=== PATIENT | female | born 1975 | race Caucasian/White ===

== ENCOUNTER 2016-08-16 15:07 | Emergency (ER) | payer OTHER ==
[2016-08-16] MEDS ORDERED: 0.9 % SODIUM CHLORIDE 1,000 ML BAG IV ONE (15:29)
[2016-08-16] MEDS ORDERED: ONDANSETRON HCL IV 4 MG/2 ML VIAL IV ONE (15:29)
--- NOTE | 2016-08-16 15:34 | Emergency Department Record ---
History of Present Illness - General Chief complaint: Nausea, Vomiting, Diarrhea Stated complaint: VOMITING X 2 DAYS Time Seen by Provider: 08/16/16 15:29 Source: Patient, Family Mode of Arrival: Ambulatory Limitations: No limitations - History of Present Illness Initial comments: 41 yo female presents with nausea, vomiting, and diarrhea starting yesterday. She states she has kept very little down since it started. No blood in the vomit or diarrhea. No fever. She has had a cough with clear sputum for about 2 weeks. She saw her PCP and started antibiotics on but she does not think she kept them down Wednesday. She had GB surgery one month ago and did very well. She had returned to normal appetite and stools. MD complaint: Diarrhea, Nausea, Vomiting, Other (cough) Onset/Timin -: Days(s) Description of Vomiting: Bilious Description of Diarrhea: Water Associated Abdominal Pain: Yes Location: Diffuse Severity: Moderate Severity scale (1-10): 7 Quality: Cramping, Other Consistency: Constant Improves with: None Worsens with: Vomiting, Other Associated Symptoms: Cough, Nausea/vomiting - Related Data Home Medications Medication Instructions Recorded Confirmed Last Taken Promethazine HCl/Codeine 5 ml PO Q4H PRN 08/16/16 08/16/16 Unknown [Phenergan W/Codeine] Previous Rx's Medication Instructions Recorded Albuterol Sulfate [Proair Hfa] 1 - 2 puff IH .EVERY 4-6 HOURS PRN 05/20/15 #1 inhaler Ondansetron [Zofran Odt] 4 mg PO Q8H #15 tab.rapdis 08/16/16 Allergies Allergy/AdvReac Type Severity Reaction Status Date / Time acetaminophen [From VICODIN] Allergy Unknown HIVES Verified 05/20/15 18:38 hydrocodone bitartrate Allergy Unknown HIVES Verified 05/20/15 18:38 [From VICODIN] morphine [MORPHINE] Allergy Unknown HIVES Verified 05/20/15 18:38 prochlorperazine edisylate Allergy Unknown HYPERSENSIT Verified 05/20/15 18:38 [From COMPAZINE] IVITY prochlorperazine maleate Allergy Unknown HYPERSENSIT Verified 05/20/15 18:38 [From COMPAZINE] IVITY Travel Screening - Travel/Exposure Within Last 30 Days Have you traveled within the last 30 days?: No Review of Systems Constitutional: Reports: Malaise, Weakness. Denies: Chills, Fever, Night sweats Eyes: Denies: Eye discharge, Eye pain, Photophobia ENT: Reports: Congestion, Throat pain Respiratory: Reports: Cough, Wheezes (Hx of asthma). Denies: Hemoptysis, Stridor Cardiovascular: Denies: Chest pain, Palpitations, Syncope Endocrine: Reports: Fatigue. Denies: Polydipsia, Polyuria Gastrointestinal: Reports: Abdominal pain (cramps at times), Diarrhea, Nausea, Vomiting Genitourinary: Denies: Dysuria, Urgency Musculoskeletal: Denies: Arthralgia, Back pain, Myalgia, Neck pain Skin: Denies: Bruising, Change in color Neurological: Denies: Confusion, Headache Psychiatric: Denies: Anxiety Hematological/Lymphatic: Denies: Blood Clots, Easy bleeding, Easy bruising Past Medical History - SOCIAL HISTORY Smoking Status: Former smoker Alcohol Use: None Drug Use: None - RESPIRATORY Hx Respiratory Disorders: Yes Hx Asthma: Yes (seasonal) Comment:: neb machine at home - CARDIOVASCULAR Hx Cardio Disorders: No - NEURO Hx Neuro Disorders: No - GI Hx GI Disorders: Yes Hx Abdominal Pain: Yes Hx Reflux: Yes - Hx Genitourinary Disorders: No - ENDOCRINE Hx Diabetes: No Hx Thyroid Disease: No - MUSCULOSKELETAL Hx Musculoskeletal Disorders: No - PSYCH Hx Psych Problems: No - HEMATOLOGY/ONCOLOGY Hx Hematology/Oncology Disorders: No Family Medical History Any Significant Family History?: Yes Hx Dementia: Grandparents Physical Exam - General General Appearance: Alert, Oriented x3, Cooperative, No acute distress Limitations: No limitations - Head Head exam: Atraumatic, Normal inspection - Eye Eye exam: Normal appearance, PERRL. negative: Conjunctival injection, Periorbital swelling, Scleral icterus - ENT ENT exam: Normal exam, Mucous membranes moist, Normal external ear exam, Normal orophraynx, TM's normal bilaterally Ear exam: Normal external inspection. negative: External canal tenderness Nasal Exam: Normal inspection. negative: Discharge, Sinus tenderness Mouth exam: Normal external inspection, Tongue normal Teeth exam: Normal inspection. negative: Dental caries Throat exam: Normal inspection. negative: Tonsillar erythema, Tonsillar exudate - Neck Neck exam: Normal inspection, Full ROM. negative: Tenderness - Respiratory Respiratory exam: Normal lung sounds bilaterally. negative: Accessory muscle use, Decreased breath sounds, Prolonged expiratory, Respiratory distress, Rhonchi, Stridor, Wheezes - Cardiovascular Cardiovascular Exam: Normal rhythm, Normal heart sounds, Tachycardia. negative : Regular rate - GI/Abdominal GI/Abdominal exam: Soft. negative: Distended, Guarding, Rebound, Rigid, Tenderness - Rectal Rectal exam: Deferred - exam: Deferred - Extremities Extremities exam: Normal inspection, Full ROM, Normal capillary refill. negative: Pedal edema, Tenderness - Back Back exam: Reports: Normal inspection, Full ROM. Denies: CVA tenderness (R), CVA tenderness (L), Muscle spasm, Paraspinal tenderness, Rash noted, Tenderness , Vertebral tenderness - Neurological Neurological exam: Alert, Normal gait, Oriented X3 - Psychiatric Psychiatric exam: Normal affect, Normal mood - Skin Skin exam: Dry, Intact, Normal color, Warm Course Vital Signs 08/16/16 15:18 Temperature 99.7 F H Pulse Rate 130 H Respiratory 24 Rate Blood Pressure 129/81 Pulse Ox 96 - Reevaluation(s) Reevaluation #1: The labs were reviewed No acute changes in the CBC or CMP except mild decrease in K at 3.2 08/16/16 17:43 Reevaluation #2: On recheck she was tolerating PO but some nausea is returning No vomiting or diarrhea to this point. 08/16/16 17:44 Reevaluation #3: The patient is improved with the Phenergan We discussed DC home and a liquid diet the next 1-2 days She is to return tomorrow for a recheck with me if any vomiting, pain or return of diarrhea so a sample can be sent 08/16/16 18:33 Medical Decision Making - Lab Data Result diagrams: 08/16/16 15:56 08/16/16 15:56 Disposition Disposition: Discharge Clinical Impression: Vomiting and diarrhea Disposition: Home, Self-Care Condition: (1) Good Instructions: Acute Nausea and Vomiting (ED), Acute Diarrhea (ED) Additional Instructions: Try to stay well hydrated and eat mostly soft or liquids the next 24 hours Return immediately if fever, uncontrolled nausea or vomiting or any return of diarrhea so a sample can be sent Return for a recheck tomorrow if you feel like you are becoming dehydrated Prescriptions: Ondansetron [Zofran Odt] 4 mg PO Q8H #15 tab.rapdis Forms: Patient Portal Access Time of Disposition: 18:36
[2016-08-16 16:43] LABS: BASO % 0.2 % (0-6); EOS % 1.6 % (0-6); GRAN % 77.3 % (47-80); HEMATOCRIT 42.3 % (35.0-47.0); LYMPH % 15.1 % (16-45); MEAN CELL VOLUME 81.8 fl (81-97); MEAN CORPUSCULAR HGB CONC 35.5 g/dl (32-36); MEAN PLATELET VOLUME 10.1 fl (7.4-10.4); MONO % 5.8 % (0-9); PLATELET COUNT 270 K/uL (130-400); RED BLOOD COUNT 5.17 M/uL (3.80-5.40); RED CELL DISTRIBUTION WIDTH 13.1 % (11.5-14.5); WHITE BLOOD COUNT W/O DIFF 10.7 K/uL (4.2-12.2)
[2016-08-16 16:52] LABS: ALB/GLOB RATIO 1.6 (1.1-1.8); ALBUMIN 4.4 gm/dL (3.5-5.0); ALKALINE PHOSPHATASE 74 U/L (38-126); ALT/SGPT 49 U/L (9-52); ANION GAP 11.1 (7-16); AST/SGOT 18 U/L (14-36); BILIRUBIN,TOTAL 0.76 mg/dL (0.2-1.3); BLOOD UREA NITROGEN 10 mg/dL (7-17); CARBON DIOXIDE 23.9 mmol/L (22-30); CREATININE 0.7 mg/dL (0.52-1.04); EST GLOMERULAR FILTRATION RATE > 60 ml/min; GLUCOSE,RANDOM 87 mg/dL (70-110); LIPASE 91 U/L (23-300); TOTAL PROTEIN 7.2 gm/dL (6.3-8.2)
[2016-08-16] MEDS ORDERED: PROMETHAZINE HCL 25 MG/ML VIAL IVP ONE (17:49)
[2016-08-16] MEDS ORDERED: DIPHENHYDRAMINE HCL IV 50 MG/ML VIAL IVP ONE (17:50)
[2016-08-16] MEDS ORDERED: ONDANSETRON 4 MG ODT TABLET SL ONE (18:32)
--- NOTE | 2016-08-20 12:34 | RADIOLOGY REPORT ---
EXAM: CHEST, TWO VIEWS HISTORY: COUGH FOR THE PAST TWO WEEKS. VOMITING AND DIARRHEA SINCE LAST NIGHT. TECHNIQUE: PA and lateral upright views of the chest were obtained. Comparison: 05/20/11. FINDINGS: The heart, mediastinum, and pulmonary vasculature are normal. Stable calcified granulomas are present within the left mid lung. There are no acute infiltrates or effusions. There is no pneumothorax. The bones appear intact. The visualized portions of the upper abdomen are unremarkable. IMPRESSION: STABLE CHEST WITH NO ACUTE PROCESS IDENTIFIED. JOB NUMBER: [id number] [facility]
== END 2016-08-16 19:25 | disposition home or self-care (01) ==
LOC: ER 15:07
DX: R11.2 Nausea with vomiting, unspecified (principal); R19.7 Diarrhea, unspecified; R05 Cough
CPT/HCPCS: 99284 ×2; 96374; 96375; 96361; 83690; 85025; 80053; 71020; J2405; J1200; J2550; J7030

== ENCOUNTER 2017-07-05 12:48 | Emergency (ER) | payer OTHER ==
[2017-07-05] MEDS ORDERED: KETOROLAC 30 MG/ML VIAL IM ONE (13:21)
[2017-07-05] MEDS ORDERED: AMOXICILLIN/POTASSIUM CLAV 875MG/125MG TABLET PO ONE (13:21)
--- NOTE | 2017-07-05 13:26 | Emergency Department Record ---
History of Present Illness - General Chief complaint: Dental Stated complaint: TOOTH PAIN,DIZZINESS,HEADACHE Time Seen by Provider: 07/05/17 13:15 Source: Patient Mode of Arrival: Ambulatory Limitations: No limitations - History of Present Illness Initial comments: The patient is here due to having L upper tooth pain at the site a a root canal from 5 days ago. The pain has never gone away and now is worsening. She is having worsening pain in the root canal tooth which is # 9 and now it is causing a frontal AVALOS and dizziness. The patient has had this exact same thing happen 3 other times with other dental procedures. She denies any fever, swelling, visual changes, vomiting, neck pain or balance issues. MD complaint: Tooth pain Onset/Timin -: Days(s) - Related Data Home Medications Medication Instructions Recorded Confirmed Last Taken Amoxicillin 500 mg PO TID 07/05/17 07/05/17 07/05/17 Previous Rx's Medication Instructions Recorded Albuterol Sulfate [Proair Hfa] 1 - 2 puff IH .EVERY 4-6 HOURS PRN 05/20/15 #1 inhaler Amoxicillin/Potassium Clav 1 tab PO BID #14 tablet 07/05/17 [Augmentin 875Mg/125Mg] Ketorolac Tromethamine 10 mg PO TID #20 tablet 07/05/17 Allergies Allergy/AdvReac Type Severity Reaction Status Date / Time acetaminophen [From VICODIN] Allergy Unknown HIVES Verified 07/05/17 13:05 hydrocodone bitartrate Allergy Unknown HIVES Verified 07/05/17 13:05 [From VICODIN] morphine [MORPHINE] Allergy Unknown HIVES Verified 07/05/17 13:05 prochlorperazine edisylate Allergy Unknown HYPERSENSIT Verified 07/05/17 13:05 [From COMPAZINE] IVITY prochlorperazine maleate Allergy Unknown HYPERSENSIT Verified 07/05/17 13:05 [From COMPAZINE] IVITY Travel Screening - Travel/Exposure Within Last 30 Days Have you traveled within the last 30 days?: No - Travel/Exposure Within Last Year Have you traveled outside the [place] in the last year?: No - Additonal Travel Details Have you been exposed to anyone with a communicable illness?: No - Travel Symptoms Symptom Screening: None Review of Systems Constitutional: Denies: Chills, Fever Eyes: Denies: Eye discharge ENT: Denies: Congestion Respiratory: Denies: Cough, Dyspnea Past Medical History - SOCIAL HISTORY Smoking Status: Former smoker Alcohol Use: None Drug Use: None - RESPIRATORY Hx Respiratory Disorders: Yes Hx Asthma: Yes (seasonal) Comment:: neb machine at home - CARDIOVASCULAR Hx Cardio Disorders: No - NEURO Hx Neuro Disorders: No - GI Hx GI Disorders: Yes Hx Abdominal Pain: Yes Hx Reflux: Yes - Hx Genitourinary Disorders: No - ENDOCRINE Hx Diabetes: No Hx Thyroid Disease: No - MUSCULOSKELETAL Hx Musculoskeletal Disorders: No - PSYCH Hx Psych Problems: No - HEMATOLOGY/ONCOLOGY Hx Hematology/Oncology Disorders: No Family Medical History Any Significant Family History?: No Hx Dementia: Grandparents Physical Exam - General General Appearance: Alert, Oriented x3, Cooperative, No acute distress - Head Head exam: Atraumatic, Normocephalic, Normal inspection - Eye Eye exam: Normal appearance, PERRL, EOMI - ENT Teeth exam: Normal inspection, Dental tenderness # (9. There is no swelling or abcess identified.), Other - Neck Neck exam: Normal inspection, Full ROM. negative: Lymphadenopathy, Meningismus (The neck is very supple. There is a neg Kernigs and Brudsinski's reflexes.), Tenderness - Respiratory Respiratory exam: Normal lung sounds bilaterally. negative: Respiratory distress - Cardiovascular Cardiovascular Exam: Regular rate, Normal rhythm, Normal heart sounds - GI/Abdominal GI/Abdominal exam: Soft, Normal bowel sounds. negative: Tenderness - Extremities Extremities exam: Normal inspection, Full ROM, Normal capillary refill. negative: Tenderness - Neurological Neurological exam: Alert, Normal gait, Oriented X3, Other (Neg Drift and Rhomberg exams.). negative: Abnormal gait, Motor sensory deficit Course Vital Signs 07/05/17 12:58 Temperature 98.7 F Pulse Rate 97 H Respiratory 16 Rate Blood Pressure 126/73 Pulse Ox 98 - Reevaluation(s) Reevaluation #1: The patient is doing much better at this time. She is up walking with no difficulty and has no nausea. She feels ready for home and has an appointment with her dentist tomorrow. 07/05/17 14:17 Medical Decision Making - Lab Data Result diagrams: 07/05/17 13:40 07/05/17 13:40 Disposition Disposition: Discharge Clinical Impression: Pain, dental Disposition: Home, Self-Care Condition: (2) Stable Instructions: Toothache (ED) Additional Instructions: Please stop the Amox. and take the Augmentin and Toradol as directed. Please see your Dentist tomorrow as planned. Return to the ER for any worsening symptoms. Prescriptions: Amoxicillin/Potassium Clav [Augmentin 875Mg/125Mg] 1 tab PO BID #14 tablet Ketorolac Tromethamine 10 mg PO TID #20 tablet Forms: Patient Portal Access Time of Disposition: 14:20 Quality - Quality Measures Quality Measures: N/A - Blood Pressure Screening View Details: Yes Does Patient Have Any of the Following: No Blood Pressure Classification: Pre-Hypertensive BP Reading Systolic Measurement: 141 Diastolic Measurement: 82 Screening for High Blood Pressure: < Pre-Hypertensive BP, F/U Documented > [ G8950] Pre-Hypertensive Follow-up Interventions: Referral to alternative/primary care provider.
[2017-07-05 13:58] LABS: BASO % 0.2 % (0-6); EOS % 1.6 % (0-6); HEMATOCRIT 39.5 % (35.0-47.0); HEMOGLOBIN 13.5 gm/dl (11.6-16.0); MEAN CELL VOLUME 84.4 fl (81-97); MEAN CORPUSCULAR HEMOGLOBIN 28.8 pg (27-33); MEAN CORPUSCULAR HGB CONC 34.2 g/dl (32-36); MEAN PLATELET VOLUME 10.3 fl (7.4-10.4); MONO % 6.2 % (0-9); PLATELET COUNT 276 K/uL (130-400); RED BLOOD COUNT 4.68 M/uL (3.80-5.40); RED CELL DISTRIBUTION WIDTH 12.8 % (11.5-14.5); WHITE BLOOD COUNT W/O DIFF 5.2 K/uL (4.2-12.2)
[2017-07-05 14:03] LABS: BLOOD UREA NITROGEN 7 mg/dL (6-20); CREATININE 0.6 mg/dL (0.5-0.9); EST GLOMERULAR FILTRATION RATE > 60 mL/min
[2017-07-05 14:06] LABS: GLUCOSE,RANDOM 100 mg/dL (74-109)
[2017-07-05 14:09] LABS: C-REACTIVE PROTEIN 0.42 mg/dL (<0.5)
== END 2017-07-05 14:32 | disposition home or self-care (01) ==
LOC: ER 12:48
DX: G89.18 Other acute postprocedural pain (principal); K08.89 Other specified disorders of teeth and supporting structures; R42 Dizziness and giddiness; R51 Headache; Z98.818 Other dental procedure status
CPT/HCPCS: 99283; 96372; 99284; 85025; 86140; 80048; J1885

== ENCOUNTER 2017-07-05 20:11 | Emergency (ER) | payer OTHER ==
[2017-07-05] MEDS ORDERED: ONDANSETRON HCL IV 4 MG/2 ML VIAL IVP ONE (20:35)
[2017-07-05] MEDS ORDERED: HYOSCYAMINE SULFATE ODT 0.125 MG TAB.SUBL SL ONE ×2 (20:35→22:49)
--- NOTE | 2017-07-05 20:40 | Emergency Department Record ---
History of Present Illness - General Chief complaint: Nausea, Vomiting, Diarrhea Stated complaint: VOMITTING,DIARRHEA,CHILLS Time Seen by Provider: 07/05/17 20:27 Source: Patient Mode of Arrival: Ambulatory Limitations: No limitations - History of Present Illness Initial comments: 41 yo female returns to ED for evaluation of nausea, vomiting, and loose stools that began 4.5 hours ago. Patient was seen earlier this afternoon for dental pain following a root canal 5 days ago, was started on Augmentin and felt better following Toradol administration. Patient denies fevers, chills, or other recent illness, denies health problems at her baseline. MD complaint: Diarrhea, Nausea, Vomiting Onset/Timin -: Days(s) Description of Vomiting: Bilious Associated Abdominal Pain: Yes Location: Diffuse Radiation: None Severity: Moderate Quality: Cramping Consistency: Intermittent Improves with: None Worsens with: None Context: Recent anitbiotic use, Recent surgery/procedure Associated Symptoms: Nausea/vomiting - Related Data Previous Rx's Medication Instructions Recorded Albuterol Sulfate [Proair Hfa] 1 - 2 puff IH .EVERY 4-6 HOURS PRN 05/20/15 #1 inhaler Amoxicillin/Potassium Clav 1 tab PO BID #14 tablet 07/05/17 [Augmentin 875Mg/125Mg] Hyoscyamine Sulfate [Levsin-Sl] 0.25 mg SL Q8H PRN #20 tab.subl 07/05/17 Ketorolac Tromethamine 10 mg PO TID #20 tablet 07/05/17 Ondansetron [Zofran Odt] 4 mg PO Q6H PRN #20 tab.rapdis 07/05/17 Allergies Allergy/AdvReac Type Severity Reaction Status Date / Time hydrocodone bitartrate Allergy Unknown HIVES Verified 07/05/17 20:25 [From VICODIN] morphine [MORPHINE] Allergy Unknown HIVES Verified 07/05/17 20:25 prochlorperazine edisylate Allergy Unknown HYPERSENSIT Verified 07/05/17 20:25 [From COMPAZINE] IVITY prochlorperazine maleate Allergy Unknown HYPERSENSIT Verified 07/05/17 20:25 [From COMPAZINE] IVITY tramadol [From Ultram] Allergy HIVES Verified 07/05/17 20:25 Travel Screening - Travel/Exposure Within Last 30 Days Have you traveled within the last 30 days?: No Review of Systems Constitutional: Denies: Chills, Fever, Malaise, Night sweats Eyes: Denies: Eye discharge, Eye pain ENT: Denies: Congestion, Ear pain, Epistaxis Respiratory: Denies: Cough, Dyspnea Cardiovascular: Denies: Chest pain, Dyspnea on exertion Endocrine: Denies: Fatigue, Heat or cold intolerance Gastrointestinal: Reports: Abdominal pain, Diarrhea, Nausea, Vomiting Genitourinary: Denies: Incontinence, Retention Musculoskeletal: Denies: Arthralgia, Back pain, Gout, Joint swelling Skin: Denies: Bruising, Change in color Neurological: Denies: Abnormal gait, Confusion, Headache, Seizure Psychiatric: Denies: Anxiety Hematological/Lymphatic: Denies: Anemia, Blood Clots Past Medical History - SOCIAL HISTORY Smoking Status: Former smoker - RESPIRATORY Hx Respiratory Disorders: Yes Hx Asthma: Yes (seasonal) Comment:: neb machine at home - CARDIOVASCULAR Hx Cardio Disorders: No - NEURO Hx Neuro Disorders: No - GI Hx GI Disorders: Yes Hx Abdominal Pain: Yes Hx Reflux: Yes - Hx Genitourinary Disorders: No - ENDOCRINE Hx Diabetes: No Hx Thyroid Disease: No - MUSCULOSKELETAL Hx Musculoskeletal Disorders: No - PSYCH Hx Psych Problems: No - HEMATOLOGY/ONCOLOGY Hx Hematology/Oncology Disorders: No Family Medical History Any Significant Family History?: Yes Hx Dementia: Grandparents Physical Exam - General General Appearance: Alert, Oriented x3, Cooperative, Moderate distress Limitations: No limitations - Head Head exam: Atraumatic, Normocephalic, Normal inspection Head exam detail: negative: Abrasion, Contusion, Ramirez's sign, General tenderness, Hematoma, Laceration - Eye Eye exam: Normal appearance. negative: Conjunctival injection, Periorbital swelling, Periorbital tenderness, Scleral icterus - ENT Ear exam: negative: Auricular hematoma, Auricular trauma Nasal Exam: negative: Active bleeding, Discharge, Dried blood, Foreign body Mouth exam: negative: Drooling, Laceration, Muffled voice, Tongue elevation - Neck Neck exam: Normal inspection. negative: Meningismus, Tenderness - Respiratory Respiratory exam: Normal lung sounds bilaterally. negative: Rales, Respiratory distress, Rhonchi, Stridor - Cardiovascular Cardiovascular Exam: Regular rate, Normal rhythm, Normal heart sounds - GI/Abdominal GI/Abdominal exam: Soft, Tenderness (Mild TTP diffusely, no rebound or guarding present.). negative: Rebound, Rigid - Rectal Rectal exam: Deferred - exam: Deferred - Extremities Extremities exam: Normal inspection. negative: Calf tenderness, Pedal edema, Tenderness - Back Back exam: Denies: CVA tenderness (R), CVA tenderness (L) - Neurological Neurological exam: Alert, Normal gait, Oriented X3 - Psychiatric Psychiatric exam: Normal affect, Normal mood - Skin Skin exam: Normal color. negative: Abrasion Type of lesion: negative: abrasion Course - Reevaluation(s) Reevaluation #1: 07/05/17 20:39 Patient was seen and examined, will obtain laboratory and urine studies, treat the patient symptomatically, and reassess. Reevaluation #2: 07/05/17 21:17 Labs reviewed, WBC 14.3, 86% neutrophils, 4% bands. Labs are otherwise grossly unremarkable for an acute process. Will order CT imaging to exclude colitis as an acute etiology for the patient's symptoms, will pre-treat with Benadryl for possible contrast allergy previously. Reevaluation #3: 07/05/17 22:49 CT Abdomen and Pelvis: Small amount FF posterior cul-de-sac c/w possible ruptured hemorrhagic cyst, no another acute abnormality. Patient was updated on all results, reports that she is feeling better. Patient has not had any episodes of vomiting or loose stools while in the ED tonight (nearly 3 hours), and she appears stable for discharge at this time. All questions were answered at the time of discharge. Medical Decision Making - Lab Data Result diagrams: 07/05/17 20:37 07/05/17 20:37 Disposition Disposition: Discharge Clinical Impression: Nausea vomiting and diarrhea Disposition: Home, Self-Care Condition: (2) Stable Instructions: Acute Nausea and Vomiting (ED) Additional Instructions: Return to ED if your symptoms worsen or if you have any concerns. Zofran and Levsin as directed. Follow-up with your family doctor in 3-5 days as directed. Prescriptions: Hyoscyamine Sulfate [Levsin-Sl] 0.25 mg SL Q8H PRN #20 tab.subl PRN Reason: Abdominal Pain Ondansetron [Zofran Odt] 4 mg PO Q6H PRN #20 tab.rapdis PRN Reason: Nausea/Vomiting Forms: Patient Portal Access Time of Disposition: 22:49 Quality - Quality Measures Quality Measures: N/A - Blood Pressure Screening Does Patient Have Any of the Following: No Blood Pressure Classification: Pre-Hypertensive BP Reading Systolic Measurement: 123 Diastolic Measurement: 77 Screening for High Blood Pressure: < Pre-Hypertensive BP, F/U Documented > [ G8950] Pre-Hypertensive Follow-up Interventions: Referral to alternative/primary care provider.
[2017-07-05 20:44] LABS: BASO % 0.2 % (0-6); EOS % 0.5 % (0-6); HEMOGLOBIN 14.1 gm/dl (11.6-16.0); LYMPH % 4.8 % (16-45); MEAN CELL VOLUME 82.6 fl (81-97); MEAN CORPUSCULAR HEMOGLOBIN 29.1 pg (27-33); MEAN CORPUSCULAR HGB CONC 35.3 g/dl (32-36); MEAN PLATELET VOLUME 10.1 fl (7.4-10.4); MONO % 4.6 % (0-9); PLATELET COUNT 265 K/uL (130-400); RED BLOOD COUNT 4.84 M/uL (3.80-5.40); RED CELL DISTRIBUTION WIDTH 12.8 % (11.5-14.5); WHITE BLOOD COUNT W/O DIFF 14.3 K/uL (4.2-12.2)
[2017-07-05] MEDS ORDERED: 0.9 % SODIUM CHLORIDE 1000ML 1,000 ML IV SCH (20:45)
[2017-07-05 20:56] LABS: BLOOD UREA NITROGEN 11 mg/dL (6-20)
[2017-07-05 20:57] LABS: CREATININE 0.5 mg/dL (0.5-0.9); EST GLOMERULAR FILTRATION RATE > 60 mL/min; TOTAL PROTEIN 7.1 g/dL (6.6-8.7)
[2017-07-05 20:59] LABS: GLUCOSE,RANDOM 126 mg/dL (74-109)
[2017-07-05 21:02] LABS: ALB/GLOB RATIO 1.4 (1.1-1.8); ALBUMIN 4.1 g/dL (4.0-5.0); ALKALINE PHOSPHATASE 63 U/L (35-104); ALT/SGPT 15 U/L (<33); AST/SGOT 18 U/L (10.0-35.0); LIPASE 24 U/L (13-60)
[2017-07-05] MEDS ORDERED: ACETAMINOPHEN 325 MG TAB PO ONE (21:04)
[2017-07-05] MEDS ORDERED: DIPHENHYDRAMINE HCL IV 50 MG/ML VIAL IVP ONE (21:16)
[2017-07-05] MEDS ORDERED: ONDANSETRON 4 MG ODT TABLET SL ONE (22:49)
--- NOTE | 2017-07-06 11:19 | CT SCAN REPORT ---
EXAM: CT SCAN OF THE ABDOMEN AND PELVIS HISTORY: PATIENT HAS GENERALIZED ABDOMINAL PAIN. TECHNIQUE: Serial axial CT scan of the abdomen and pelvis was performed at 3.75 mm intervals from the dome of the diaphragm down to the pubic symphysis following the intravenous administration of 100 ml of Omnipaque 300. Oral contrast was not administered. Comparison: CT scan of the abdomen and pelvis dated 07/14/16 is provided. FINDINGS: The lung windows of the lung bases demonstrate no CT evidence of a focal infiltrate or pleural effusion. The visualized heart size and contour is within normal limits. The liver demonstrates a small focus of fatty infiltration within the left hepatic lobe adjacent to the falciform ligament. Otherwise the size, contour and attenuation of the liver is within normal limits. The spleen, pancreas, and adrenal glands are unremarkable. The gallbladder is not visualized. There is no CT evidence of hydronephrosis or hydroureter. No renal or ureteral calculi are noted. The contour, caliber, and flow within the abdominal aorta is within normal limits. There is no CT evidence of retroperitoneal, pelvic, or inguinal lymphadenopathy. The bowel gas pattern is nonspecific and nonobstructive. There is no CT evidence of free intraperitoneal air. The urinary bladder is decompressed. The uterus is retroverted. Minimal fluid is noted within the posterior cul-de-sac. This finding may be the result of hemorrhagic ovarian cyst. If there is further clinical concern then ultrasound examination of the pelvis can be obtained for further evaluation. Bone windows demonstrate no CT evidence of an acute fracture or dislocation of the visualized osseous structures of the abdomen and pelvis. IMPRESSION: 1. MINIMAL FLUID IS NOTED WITHIN THE POSTERIOR CUL-DE-SAC. THIS FINDING MAY BE THE RESULT OF A HEMORRHAGIC OVARIAN CYST. IF THERE IS FURTHER CLINICAL CONCERN THEN AN ULTRASOUND EXAMINATION OF THE PELVIS CAN BE OBTAINED FOR FURTHER EVALUATION. 2. OTHERWISE, NO CT EVIDENCE OF AN ACUTE INTRAABDOMINAL PROCESS. JOB NUMBER: [id number] [facility]
== END 2017-07-05 23:04 | disposition home or self-care (01) ==
LOC: ER 20:11
DX: R11.14 Bilious vomiting (principal); R19.7 Diarrhea, unspecified; R10.30 Lower abdominal pain, unspecified; Z98.818 Other dental procedure status
CPT/HCPCS: 99284 ×2; 96374; 96375; 83690; 80053; 85027; 74177; Q9967; J1980; J2405; J1200; J7030

== ENCOUNTER 2018-02-09 12:46 | Emergency (ER) | payer SELFPAY ==
[2018-02-09] MEDS ORDERED: 0.9 % SODIUM CHLORIDE 1,000 ML BAG IV ONE (13:34)
[2018-02-09] MEDS ORDERED: ONDANSETRON HCL IV 4 MG/2 ML VIAL IVP ONE (13:36)
[2018-02-09] MEDS ORDERED: KETOROLAC 30 MG/ML VIAL IVP ONE (13:36)
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
[2018-02-09 13:45] LABS: URINE APPEARANCE CLEAR; URINE BILIRUBIN NEGATIVE (NEGATIVE); URINE BLOOD TRACE-I (NEGATIVE); URINE COLOR YELLOW; URINE GLUCOSE (UA) NEGATIVE (NEGATIVE); URINE KETONE NEGATIVE (NEGATIVE); URINE LEUKOCYTE ESTERASE NEGATIVE (NEGATIVE); URINE NITRITE NEGATIVE (NEGATIVE); URINE PROTEIN NEGATIVE (NEGATIVE); URINE UROBILINOGEN 0.2 E.U./dL (0.20 - 1.00)
[2018-02-09 14:00] LABS: AMPHETAMINE SCREEN URINE NOT DETECTED; BARBITURATE SCREEN URINE NOT DETECTED; BENZODIAZEPINE SCREEN URINE NOT DETECTED; COCAINE SCREEN URINE NOT DETECTED; METHADONE SCREEN URINE NOT DETECTED; METHAMPHETAMINE SCREEN NOT DETECTED; OPIATE SCREEN URINE NOT DETECTED; OXYCODONE SCREEN URINE NOT DETECTED; PHENCYCLIDINE SCREEN URINE NOT DETECTED; PROPOXYPHENE SCREEN URINE NOT DETECTED; THC SCREEN URINE NOT DETECTED; TRICYCLIC ANTIDEPRESSANT SCRN NOT DETECTED
[2018-02-09 14:00] LABS: HCG,QUALITATIVE URINE NEGATIVE (NEGATIVE)
[2018-02-09 14:06] LABS: URINE BACTERIA NONE SEEN; URINE EPITHELIAL CELLS 0 - 2 (FEW); URINE RBC 0 - 2 (NONE SEEN); URINE WBC NONE SEEN (0-2/hpf)
[2018-02-09 14:43] LABS: HEMATOCRIT 42.5 % (35.0-47.0); MEAN CELL VOLUME 83.5 fl (81-97); MEAN CORPUSCULAR HEMOGLOBIN 29.5 pg (27-33); MEAN CORPUSCULAR HGB CONC 35.3 g/dl (32-36); MEAN PLATELET VOLUME 10.3 fl (7.4-10.4); PLATELET COUNT 336 K/uL (130-400); RED BLOOD COUNT 5.09 M/uL (3.80-5.40); RED CELL DISTRIBUTION WIDTH 12.8 % (11.5-14.5); WHITE BLOOD COUNT W/O DIFF 10.5 K/uL (4.2-12.2)
[2018-02-09 14:56] LABS: BLOOD UREA NITROGEN 11 mg/dL (6-20); CREATININE 0.6 mg/dL (0.5-0.9); EST GLOMERULAR FILTRATION RATE > 60 mL/min
[2018-02-09 14:59] LABS: GLUCOSE,RANDOM 99 mg/dL (74-109)
[2018-02-09 15:02] LABS: LIPASE 35 U/L (13-60)
== END 2018-02-09 15:31 | disposition home or self-care (01) ==
LOC: ER 12:46
DX: S16.1XXA Strain of muscle, fascia and tendon at neck level, initial encounter (principal); S39.012A Strain of muscle, fascia and tendon of lower back, initial encounter; R11.11 Vomiting without nausea; V48.5XXA Car driver injured in noncollision transport accident in traffic accident, initial encounter; Y92.411 Interstate highway as the place of occurrence of the external cause; Z87.891 Personal history of nicotine dependence
CPT/HCPCS: 72050; 72100; 80048; 80305; 80320; 81001; 81025; 83690; 85027; 96361; 96374; 96375; 99284; J1885; J2405; J7030